=== PATIENT | female | born 1950 | race Caucasian/White ===

== ENCOUNTER → 2018-01-03 10:24 | Outpatient (CLI) | payer MEDICARE, OTHER, SELFPAY ==
--- NOTE | 2018-01-03 10:30 | DI.MG.S_ITS ---
UNILATERAL LEFT DIGITAL DIAGNOSTIC MAMMOGRAM 3D/2D WITH ADDITIONAL VIEWS: 01/03/2018 CLINICAL: Additional evaluation requested from prior study. Comparison is made to exams dated: 12/14/2017 mammogram, 10/17/2012 mammogram, and 06/16/2007 mammogram - [facility]. The tissue of the left breast is heterogeneously dense. This may lower the sensitivity of mammography. The focal asymmetry in the left breast at 1 o'clock anterior depth is not seen in additional views. No other significant masses or calcifications are seen in the breast. IMPRESSION: BENIGN There is no mammographic evidence of malignancy. A 1 year screening mammogram is recommended. This exam was interpreted at Station ID: [id number]. NOTE: For mammograms, a report in lay terms will be sent to the patient. Approximately 15% of breast malignancies will not be visualized mammographically. In the management of a palpable breast mass, a negative mammogram must not discourage biopsy of a clinically suspicious lesion. Electronically Signed By: Jacklyn Rodriguez M.D. lk/:01/03/2018 10:56:10 letter sent: Normal Exam ACR BI-RADS Category 2: Benign Finding(s) 3342F
== END ==
PROVIDERS: Family Provider Family Medicine; PCP Family Medicine; Visit Provider Family Medicine
DX: R92.8 Other abnormal and inconclusive findings on diagnostic imaging of breast (principal)
CPT/HCPCS: 77065; G0279

== ENCOUNTER → 2019-01-28 07:42 | Outpatient (CLI) | payer MEDICARE, OTHER, SELFPAY ==
[2019-01-28 09:39] LABS: Add Manual Diff / Slide Review NO; Basophils Absolute Auto 0 /uL (0-100); Basophils Percent Auto 0.4 % (0-2); Eosinophils Absolute Auto 100 /uL (0-450); Eosinophils Percent Auto 1.8 % (2-4); Hematocrit 42.1 % (36-46); Hemoglobin 14.6 g/dL (12.0-16.0); Lymphocytes Absolute Auto 1700 /uL (1100-4500); Lymphocytes Percent Auto 36.6 % (25-40); Mean Corpuscular HGB Conc 34.7 % (30-36); Mean Corpuscular Hemoglobin 34.4 PG (26-34); Mean Corpuscular Volume 99.3 fL (80-100); Monocytes Absolute Auto 500 /uL (0-900); Monocytes Percent Auto 11.5 % (3-14); Neutrophils Absolute Auto 2400 /uL (1500-7000); Neutrophils Percent Auto 49.7 % (50-75); Platelet Count 196 X10^3/uL (150-400); Red Blood Cell Count 4.24 X10^6/uL (4.0-5.2); Red Cell Distribution Width 14.1 % (11.6-14.8); White Blood Cell Count 4.8 X10^3/uL (4.5-11.0)
[2019-01-28 10:19] LABS: Alanine Aminotransferase 21 IU/L (9-52); Albumin 4.6 g/dL (3.5-5.0); Albumin Globulin Ratio 1.6 (1.0-2.8); Alkaline Phosphatase 103 U/L (38-126); Aspartate Aminotransferase 40 IU/L (14-36); BUN Creatinine Ratio 34.3 (6-22); Bilirubin Total 1.8 mg/dL (0.2-1.3); Blood Urea Nitrogen 24 mg/dL (7-17); Calcium 9.9 mg/dL (8.4-10.2); Carbon Dioxide 26 mmol/L (22-32); Chloride 96 mmol/L (98-107); Cholesterol 279 mg/dL (140-199); Estimated Glomerular Filt Rate > 60.0 mL/min (>60); Globulin 2.8 g/dL (1.7-4.1); Glucose 108 mg/dL (80-110); HDL Cholesterol 107 mg/dL (40-60); HEMOLYSIS < 15 (0-50); LDL Cholesterol Calculated 142 mg/dL (<100); Potassium 3.3 mmol/L (3.4-5.1); Sodium 135 mmol/L (137-145); Total Protein 7.4 g/dL (6.3-8.2); Triglycerides 152 mg/dL (35-150)
== END ==
PROVIDERS: PCP Family Medicine; Visit Provider Family Medicine
DX: E78.5 Hyperlipidemia, unspecified (principal); Z13.1 Encounter for screening for diabetes mellitus; Z13.6 Encounter for screening for cardiovascular disorders
CPT/HCPCS: 36415; 80053; 80061; 85025

== ENCOUNTER → 2019-01-29 12:26 | Outpatient (CLI) | payer MEDICARE, OTHER, SELFPAY ==
--- NOTE | 2019-01-29 | DI.MG.S_ITS ---
BILATERAL DIGITAL SCREENING MAMMOGRAM 3D/2D WITH CAD: 01/29/2019 CLINICAL: Routine screening. Comparison is made to exams dated: 12/14/2017 mammogram, 10/17/2012 mammogram, and 06/16/2007 mammogram - [facility]. The tissue of both breasts is heterogeneously dense. This may lower the sensitivity of mammography. Current study was also evaluated with a Computer Aided Detection (CAD) system. There are benign post operative findings in the left breast. No significant masses, calcifications, or other findings are seen in either breast. There has been no significant interval change. IMPRESSION: There is no mammographic evidence of malignancy. A 1 year screening mammogram is recommended. This exam was interpreted at Station ID: [id number]. NOTE: For mammograms, a report in lay terms will be sent to the patient. Approximately 15% of breast malignancies will not be visualized mammographically. In the management of a palpable breast mass, a negative mammogram must not discourage biopsy of a clinically suspicious lesion. Electronically Signed By: Tato zamora/rex:01/30/2019 06:31:32 letter sent: Normal Exam ACR BI-RADS Category 2: Benign Finding(s) 3342F
== END ==
PROVIDERS: PCP Family Medicine; Visit Provider Family Medicine
DX: Z12.31 Encounter for screening mammogram for malignant neoplasm of breast (principal)
CPT/HCPCS: 77063; 77067

== ENCOUNTER 2019-04-06 09:23 | Day surgery (SDC) | payer MEDICARE, OTHER, SELFPAY ==
[2019-04-06] VITALS (7 sets, daily range): BP systolic 115–153; BP diastolic 66–96; PULSE 71–93; RESP 12–19; TEMP 36.1–36.6; O2SAT 93–100; BMI 24.7
--- NOTE | 2019-04-06 | PATH_ITS ---
[facility] Accession Number: [id number] . 01 Material submitted: . PART A: esophagus, E-G Junction - GE JUNCTION PART B: gastrointestinal site - GASTRIC ANTRUM . 01 Clinical history: . B. RULE OUT H. PYLORI . 02 Diagnosis: A. GE Junction: Squamous epithelium and squamous mucosa with no diagnostic abnormality. Intraepithelial eosinophils are not increased. Negative for dysplasia and malignancy. No columnar mucosa is identified for evaluation. . B. Gastric Antrum: Portions of gastric antral and body-type mucosa with no significant histomorphologic abnormality. Negative for H. pylori organisms by H/E stain. Negative for intestinal metaplasia. Negative for dysplasia or malignancy. [facility]/04/07/2019 . 02 Electronically signed: . Suyapa Ochoa MD, Pathologist NPI- [id number] . 01 Gross description: . Part A: GE JUNCTION: Received in formalin are 3 fragment(s) of christias[place], soft tissue measuring 0.1 x 0.1 x 0.1 cm to 0.2 x 0.2 x 0.1 cm which is entirely submitted and submitted entirely in 1 cassette(s) Part B: GASTRIC ANTRUM: Received in formalin are 3 fragment(s) of christianson, soft tissue measuring 0.1 x 0.1 x 0.1 cm to 0.2 x 0.2 x 0.2 cm which is entirely submitted and submitted entirely in 1 cassette(s) /DMC /DMC . 02 Pathologist provided ICD-10: K29.70 . 02 CPT . 068361, [id number] Performed at: [facility] [address] [place] [address] [address], [place], [place] [id number] MD Brennon Alamo MD Phone: [phone] Performed at: 02 [facility] [address] [place] [id number] MD Mari Shanks MD Phone: [phone]
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
--- NOTE | 2019-04-06 10:48 | PM.PREOP ---
Pre-operative Note Interval Note History & Physical reviewed/Exam performed by Physician: Yes Changes to H&P: No
--- NOTE | 2019-04-06 11:59 | PM.OP.ENDO ---
Operative Date/Time/Diagnoses Date of procedure: 04/06/19 Time of procedure: 11:51 Pre-op diagnosis: Dysphagia. History of Mahan's esophagus. History of stricture. Post-op diagnosis: same (Recurrence stricture at the GE junction. Duodenitis.) Procedure & Clinicians Study performed: EGD with balloon dilatation, cold biopsy of stomach and GE junction. Same procedure as scheduled: Yes Indications: See preop diagnosis Surgeon: Aroldo Carrillo Procedure Notes SCOAP/Timeout: Performed Procedure in detail: Patient is placed in the right lateral decubitus position and underwent deep sedation with monitored anesthesia care due to her prior reactions to narcotics and Versed. Local anesthetic was sprayed in the back of her throat. Bite block was inserted and the scope was passed through it into the esophagus. The esophagus was somewhat tortuous. At 39 cm there was a stricture that was narrow enough that I could not get the scope to pass through it. Biopsies were taken at this level to monitor Mahan's. I then passed a balloon through the scope and blew it up dilating from 10-12 mm diameter. This allowed me to easily enter the stomach. The stomach was unremarkable. The pyloric channel was mildly narrowed. The duodenum was remarkable for significant inflammation in the bulb. The 2nd 3rd and 4th parts of the duodenum were normal. The scope was brought back into the stomach and retroflexed. There was bleeding visible the GE junction but otherwise the proximal stomach was normal. Biopsies were taken of the antrum to rule out H pylori. The scope was then brought up into the esophagus and I attempted to clear the area to see if I could further dilate her. This proved to be very difficult as there was a small amount of bleeding which gradually decreased. The tissue at the it dilatation site was somewhat frayed and so I could not tell if it was safe to actually blow the balloon up further not so I chose not to. The scope was removed and the patient tolerated the procedure well. Scope withdrawal time: Not applicable Sedation minutes: 0 Findings: Mahan's esophagus (History of), stricture (At 39 cm from the incisors at the GE junction) and other findings (Duodenitis) Specimen(s): other (GE junction biopsies at the stricture and gastric antrum biopsies) Complications: none Recommendations: Continue medication(s) (Take your omeprazole before breakfast and in the evening before dinner.) Follow up: weeks (Two) Disposition: PACU
--- NOTE | 2019-04-06 12:00 | SUR.PHASEI ---
to PACU awake, resp unlabored, report to Pj Guerra
--- NOTE | 2019-04-06 12:59 | SUR.PHASEII ---
Appt with Dr. Carrillo made for 04/29/19 at 10:45. Pt will be away from 04/16-04/25.
== END 2019-04-06 12:57 | disposition home or self-care (01) ==
PROVIDERS: PCP Family Medicine; Visit Provider Specialist
PROC: 0DJ08ZZ Inspection of Upper Intestinal Tract, Via Natural or Artificial Opening Endoscopic (ICD-10-PCS; CPT 43235; principal; 2019-04-06 10:30)
DX: K22.719 Barrett's esophagus with dysplasia, unspecified (principal); K22.2 Esophageal obstruction; K29.80 Duodenitis without bleeding
CPT/HCPCS: 43245; 43239; 88305; J2704

== ENCOUNTER → 2020-02-04 09:39 | Outpatient (CLI) | payer MEDICARE, OTHER, SELFPAY ==
[2020-02-04 10:37] LABS: Add Manual Diff / Slide Review NO; Basophils Absolute Auto 0 /uL (0-100); Basophils Percent Auto 0.4 % (0-2); Eosinophils Absolute Auto 0 /uL (0-450); Eosinophils Percent Auto 0.8 % (2-4); Hematocrit 37.6 % (36-46); Hemoglobin 12.9 g/dL (12.0-16.0); Lymphocytes Absolute Auto 1100 /uL (1100-4500); Lymphocytes Percent Auto 22.3 % (25-40); Mean Corpuscular HGB Conc 34.3 % (30-36); Mean Corpuscular Hemoglobin 34.3 PG (26-34); Mean Corpuscular Volume 100.1 fL (80-100); Monocytes Absolute Auto 400 /uL (0-900); Monocytes Percent Auto 8.8 % (3-14); Neutrophils Absolute Auto 3300 /uL (1500-7000); Neutrophils Percent Auto 67.7 % (50-75); Platelet Count 214 X10^3/uL (150-400); Red Blood Cell Count 3.75 X10^6/uL (4.0-5.2); Red Cell Distribution Width 13.9 % (11.6-14.8); White Blood Cell Count 4.8 X10^3/uL (4.5-11.0)
[2020-02-04 10:57] LABS: Alanine Aminotransferase 14 IU/L (<35); Albumin 4.3 g/dL (3.5-5.0); Albumin Globulin Ratio 1.5 (1.0-2.8); Alkaline Phosphatase 95 U/L (38-126); Aspartate Aminotransferase 22 IU/L (14-36); BUN Creatinine Ratio 29.6 (6-22); Bilirubin Total 0.5 mg/dL (0.2-1.3); Blood Urea Nitrogen 16 mg/dL (7-17); Calcium 9.5 mg/dL (8.4-10.2); Carbon Dioxide 27 mmol/L (22-32); Chloride 104 mmol/L (98-107); Cholesterol 222 mg/dL (140-199); Estimated Glomerular Filt Rate > 60.0 mL/min (>60); Globulin 2.8 g/dL (1.7-4.1); Glucose 115 mg/dL (80-110); HDL Cholesterol 87 mg/dL (40-60); HEMOLYSIS < 15 (0-50); LDL Cholesterol Calculated 120 mg/dL (<100); Potassium 4.2 mmol/L (3.4-5.1); Sodium 138 mmol/L (137-145); Total Protein 7.1 g/dL (6.3-8.2); Triglycerides 75 mg/dL (35-150)
[2020-02-04 11:23] LABS: Thyroid Stimulating Hormone 0.85 uIU/mL (0.47-4.68)
== END ==
PROVIDERS: PCP Family Medicine; Referring Provider Family Medicine; Visit Provider Family Medicine
DX: E78.5 Hyperlipidemia, unspecified (principal)
CPT/HCPCS: 36415; 80053; 80061; 84443; 85025

== ENCOUNTER 2020-02-11 08:03 | Outpatient (RCR) | payer MEDICARE, OTHER, SELFPAY ==
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
--- NOTE | 2020-02-11 18:00 | PT.OPPOC ---
Physical, Occupational & Speech Therapy At [facility] Current Diagnoses Hyperlipidemia, unspecified (02/11/20) Muscle weakness (generalized) (02/11/20) Pain in right finger(s) (02/11/20) Pain in left finger(s) (02/11/20) Other symptoms and signs involving the musculoskeletal system (02/11/20) Other reduced mobility (02/11/20) Visit Care Team Role Provider Type Carlos Manuel Elizabeth MD Attending Provider Physician Family Provider Primary Care Provider Referring Provider Specialty: Family Practice Address: [address] [place] [address], [facility] Email: [email or web address] Plan Of Care PT-OP-T Assessment and Plan Start: 02/11/20 08:14 Freq: Status: Active Protocol: Document 02/11/20 08:15 LRN (Rec: 02/11/20 19:58 LRN [id number]) Physical Therapy Assessment Rehab Potential Rehabilitation Potential Good Evaluation Complexity Number of Personal Factors/Comorbidities 1-2 Number of Body Systems Impaired 3 Clinical Presentation at Evaluation Evolving Impairments Impairments Pain,ROM,Strength Goals Four Impairment Decreased strength Short Term Goal (STG) Improve L thumb strength to 5/ 5 and improve R rn urgent care strength 1-2#. STG Duration 03/25/20 Kier Boiler Goal (LTG) Improve hip strength so that the pt will be able to lessen her pain with gait after the first 10 or less steps. LTG Duration 05/11/20 Three Impairment Decreased mobility Short Term Goal (STG) Improve thumb MCP jt active flex to 52 deg's bilaterally ( Initial: L 52 deg's, R 46 deg' s), Improve thumb ext to 50 deg's and AB to no less than 60 deg' s (Initial in deg's: ext is L 42, R 40; AB is L 44, R 50). STG Duration 03/25/20 Halfway Goal (LTG) Improve hip mobility so that pt will be able to tolerate sitting for > 1hr. LTG Duration 05/11/20 Two Impairment Isac thumb and hip pain Short Term Goal (STG) Eliminate onset of sharp pain in thumbs (Initial Eval: Isac ache pain at thumb MCP joints rated 2-4/10 with intermittent sharp pn). STG Duration 03/25/20 Halfway Goal (LTG) Decrease isac hip pain to no greater than 2/10 with pt able to ambulate with minimal to no pain after the first 10 or less steps. LTG Duration 05/11/20 One Impairment Lacks appropriate self care HEP. Short Term Goal (STG) Pt will be independent in a self care HEP for the thumbs. STG Duration 02/26/20 Kier Boiler Goal (LTG) Pt will be independent in a self care HEP of the hips. LTG Duration 05/11/20 Assessment Summary Assessment Pt presents with pain at the MCP joints of the thumbs, probably mechanical (arthritic ) in nature, and possible tenosynivitis of the L thumb at the CMC joint. She has weakness of the L thumb with extension and adduction due to pain, and limited mobility at both thumbs at the MCP and CMC joints. The rn urgent care strength of her non-dominant hand is almost equal to her dominant hand, which would be unexpected. The pt has pain in her bilateral hips that is limiting her function with the first 50-75 steps of walking and with squatting, and causing a little difficulty with sitting for 1 hr, getting in/out of a bath and usual housework activities. Further assessment is needed for strength and mobility limitiations that will be addressed at the next visit. The pt will benefit from skilled physical therapy for education in self care exercises and improvement in thumb, wrist and hip mobility and strength to improve the ease of functional activities. We will first concentrate on the pt's hand pain to reduce and place her on a self care program, then address her bilateral hip dysfunction. Physical Therapy Plan Frequency and Duration Frequency of Treatment 2x/Week Plan of Care Start Date 02/11/20 Plan of Care End Date 05/11/20 Therapeutic Interventions Therapeutic Interventions Aquatic Therapy,Gait Training, Home Exercise Program,Joint Mobilizations,Manual Therapy, Self-Care/Home Management,Soft Tissue Mobilization,Taping, Therapeutic Exercises Modalities Cold Pack/Ice Massage,Hot Packs,Paraffin Bath,Ultrasound Other Referrals/Consults Referrals/Consults Recommended Recommend pt be referred for a nutrition consult for education on an anti- inflammatory diet. Next Visit Focus/Plan Next Note Type Treatment Note Next Visit Plan Assess Isac Hip strength & SLS with self care ex's as needed (check mobility after paraffin dip) Paraffin Dip, f/b JMT & AROM w /HEP. Assess Isac Hip ROM. Add goals if needed for hips and update POC. Plan of Care Dates Plan of Care Start Date 02/11/20 Plan of Care End Date 05/11/20 Electronically Signed by: Jacklyn Hooper, PT 02/17/20 1769 Please Sign and Return: I have reviewed this Plan of Care and certify that the skilled therapy services above are required to meet the patient?s needs. Physician Signature Date Printed Name and Credentials Clinical Instructor Signature Printed Name and Credentials
--- NOTE | 2020-02-17 13:05 | PT-OP ANOTE ---
Late Entry: Message received from Dr. Elizabeth's office that pt does not want to continue therapy; therefore DC requested.
--- NOTE | 2020-02-17 13:09 | PT.OPDS ---
Current Diagnoses Hyperlipidemia, unspecified (02/11/20) Muscle weakness (generalized) (02/11/20) Pain in right finger(s) (02/11/20) Pain in left finger(s) (02/11/20) Other symptoms and signs involving the musculoskeletal system (02/11/20) Other reduced mobility (02/11/20) Visit Care Team Role Provider Type Carlos Manuel Elizabeth MD Attending Provider Physician Family Provider Primary Care Provider Referring Provider Specialty: Family Practice Address: [address] [place] [address], [facility] Email: [email or web address] Visit Number Visit Number 1 Discharge Summary PT-OP-B Current Condition Start: 02/11/20 08:14 Freq: Status: Active Protocol: Document 02/11/20 08:15 LRN (Rec: 02/11/20 09:03 LRN [id number]) Current Condition History of Current Condition Onset Date 3 yrs ago Current Complaints Ache in thumbs PIP jt bilaterally, isac hip pain first 50-75 steps standing. History of Current Condition Insidious onset of hand pain that aches but sometimes is sharp in nature. Hip pains are more acute sometimes than other. Hip pain is constant, increases with sitting. Shopping makes it worse. Sore hip joints, tender and achy, like a bruise. Denies taking arthritis medications. Prior Treatments and Tests None Future Testing and Treatments Planned None Treatment Goals Patient/Caregiver Goals Pt goals is to reduce joint pain and increase strength in the thumbs and hips. Prior Functional Status Baseline Function- ADL's Independent Baseline Function- Mobility Independent Baseline Function- Gait Bilateral hip pain with the first 50-75 steps of gait. 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 Current Functional Impairments (Reported) Functional Limitations- ADL's Post activity pain with: opening jars, dressing, cooking using utensils, blow drying hair; activity causes sharp pain in the thumb. Functional Limitations- Mobility/Gait Lateral hip pain causes limping both sides for the first 50-75 steps. Functional Limitations- Recreation/ Hip pain hinders ability to Hobbies garden/squat Personal Factors Other Personal Factors That May Effect Lives with spouse and daughter Therapy/Recovery at home. Dx of arthritis PT-OP-C Subjective Start: 02/11/20 08:14 Freq: Status: Active Protocol: Document 02/11/20 08:15 LRN (Rec: 02/11/20 09:03 LRN [id number]) Patient Questionnaires Lower Extremity Functional Scale LEFS Score 68 LEFS Impairment 1 to 19% Impaired (Score 63-79 ) Upper Extremity Functional Scale UEFS Score .......... OP-PT Pain Assessment Location Hips Pain Location Details Lateral hips sometimes bruise feeling Intensity 4 Scale Used Numeric (0 - 10) Description Aching Frequency Constant Pain Aggravating Factors Sitting,Walking PIP jt of thumb' Pain Location Details Bilateral hands Intensity 4 Scale Used Numeric (0 - 10) Description Aching,Sharp,With Movement Frequency Constant Pain Duration Constant ache, sometimes sharp with movement Pain Aggravating Factors Activity Other Pain Alleviating Factors No pain sleeping. PT-OP-H Neuro Start: 02/11/20 08:14 Freq: Status: Active Protocol: Document 02/11/20 08:15 LRN (Rec: 02/11/20 19:58 LRN [id number]) Deep Tendon Reflex & Clonus Assessment Deep Tendon Reflex Tricep Deep Tendon Reflex 0 Absent Bilateral Brachioradialis Deep Tendon Reflex 2+ Normal Bilateral Bicep Deep Tendon Reflex 2+ Normal PT-OP-K Range of Motion Start: 02/11/20 08:14 Freq: Status: Active Protocol: Document 02/11/20 08:15 LRN (Rec: 02/11/20 19:58 LRN [id number]) Wrist Goniometric Range of Motion ROM Limitations Wrist Limitations of Range of Motion Soft Tissue Tightness Comments Bilateral wrist AROM is WNL except: Supination: Right - lacks 10 deg's; Left - lacks 3 deg's ( normal is 90 deg's) Flexion: 65 deg's bilateraly (normal is 80 deg's) Extension: 53 deg's bilaterally (normal is 70 deg' s). Thumb Goniometric Range of Motion Thumb Left MCP Flexion Active (degrees) 52 CMC Flexion Active (degrees) 10 CMC Extension Active (degrees) 42 Right MCP Flexion Active (degrees) 46 CMC Flexion Active (degrees) 10 CMC Extension Active (degrees) 40 Thumb ROM Limitations Comments MCP flex norm is 50 deg's CMC Ext is 50 deg's CMC AB is 70 deg's. CMC AROM: Right: 50 deg's, Left: 44 deg's. PT-OP-L Special Tests Start: 02/11/20 08:14 Freq: Status: Active Protocol: Document 02/11/20 08:15 LRN (Rec: 02/11/20 19:58 LRN [id number]) Special Tests Wrist/Hand Special Tests Myron's Test Results + Left side with pain at CMC jt Comments Pain L side at CMC jt, Ache on R side at CMC jt. Pain indicates possible stenosing tenosynovitis. PT-OP-M Strength Start: 02/11/20 08:14 Freq: Status: Active Protocol: Document 02/11/20 08:15 LRN (Rec: 02/11/20 19:58 LRN [id number]) Wrist Strength Wrist Manual Muscle Testing Right Reason Not Measured WFL Left Reason Not Measured WFL Finger/Thumb Strength Finger Manual Muscle Testing Right Thumb Comments Strength is generally 5/5. Left Thumb Extension (thumb C8) 3 Fair Adduction 4 Good Comments Strength is 5/5 except as indicated above. Hand Text Transcriber/Pinch Strength Hand Dominance Hand Dominance Right Hand Strength Right Comments 3 trials: 22#, 21#, 15# Left Comments 3 trials: 21#, 20#, 20# PT-OP-T Assessment and Plan Start: 02/11/20 08:14 Freq: Status: Active Protocol: Document 02/17/20 13:06 LRN (Rec: 02/17/20 13:09 LRN [id number]) Physical Therapy Assessment Goals Four Impairment Decreased strength Short Term Goal (STG) Improve L thumb strength to 5/ 5 and improve R inspector machine cut glass strength 1-2#. STG Duration 03/25/20 Not assessed due msg rec'd of pt request for DC Alf Goal (LTG) Improve hip strength so that the pt will be able to lessen her pain with gait after the first 10 or less steps. LTG Duration 05/11/20 Not assessed due msg rec'd of pt request for DC Three Impairment Decreased mobility Short Term Goal (STG) Improve thumb MCP jt active flex to 52 deg's bilaterally ( Initial: L 52 deg's, R 46 deg' s), Improve thumb ext to 50 deg's and AB to no less than 60 deg' s (Initial in deg's: ext is L 42, R 40; AB is L 44, R 50). STG Duration 03/25/20 Leak Patcher Goal (LTG) Improve hip mobility so that pt will be able to tolerate sitting for > 1hr. LTG Duration 05/11/20 Not assessed due msg rec'd of pt request for DC Two Impairment Isac thumb and hip pain Short Term Goal (STG) Eliminate onset of sharp pain in thumbs (Initial Eval: Isac ache pain at thumb MCP joints rated 2-4/10 with intermittent sharp pn). STG Duration 03/25/20 Not assessed due msg rec'd of pt request for DC Leak Patcher Goal (LTG) Decrease isac hip pain to no greater than 2/10 with pt able to ambulate with minimal to no pain after the first 10 or less steps. LTG Duration 05/11/20 Not assessed due msg rec'd of pt request for DC One Impairment Lacks appropriate self care HEP. Short Term Goal (STG) Pt will be independent in a self care HEP for the thumbs. STG Duration 02/26/20 Not assessed due msg rec'd of pt request for DC Alf Goal (LTG) Pt will be independent in a self care HEP of the hips. LTG Duration 05/11/20 Not assessed due msg rec'd of pt request for DC Assessment Summary Assessment Pt seen for initial evaluation 02/11/20, requested DC from PT per Dr. Elizabeth 02/15/20. No further therapy planned. Physical Therapy Plan Discharge Physical Therapy Discharge Reasons Patient Request Discharge Comments Thank you for your referral.
--- NOTE | 2020-03-29 09:31 | PT.OPDS ---
Current Diagnoses Hyperlipidemia, unspecified (02/11/20) Muscle weakness (generalized) (02/11/20) Pain in right finger(s) (02/11/20) Pain in left finger(s) (02/11/20) Other symptoms and signs involving the musculoskeletal system (02/11/20) Other reduced mobility (02/11/20) Visit Care Team Role Provider Type Carlos Manuel Elizabeth MD Attending Provider Physician Family Provider Primary Care Provider Referring Provider Specialty: Family Practice Address: [address] [place] [address], [facility] Email: [email or web address] Visit Number Visit Number 1 Discharge Summary PT-OP-B Current Condition Start: 02/11/20 08:14 Freq: Status: Active Protocol: Document 02/11/20 08:15 LRN (Rec: 02/11/20 09:03 LRN [id number]) Current Condition History of Current Condition Onset Date 3 yrs ago Current Complaints Ache in thumbs PIP jt bilaterally, isac hip pain first 50-75 steps standing. History of Current Condition Insidious onset of hand pain that aches but sometimes is sharp in nature. Hip pains are more acute sometimes than other. Hip pain is constant, increases with sitting. Shopping makes it worse. Sore hip joints, tender and achy, like a bruise. Denies taking arthritis medications. Prior Treatments and Tests None Future Testing and Treatments Planned None Treatment Goals Patient/Caregiver Goals Pt goals is to reduce joint pain and increase strength in the thumbs and hips. Prior Functional Status Baseline Function- ADL's Independent Baseline Function- Mobility Independent Baseline Function- Gait Bilateral hip pain with the first 50-75 steps of gait. 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 Current Functional Impairments (Reported) Functional Limitations- ADL's Post activity pain with: opening jars, dressing, cooking using utensils, blow drying hair; activity causes sharp pain in the thumb. Functional Limitations- Mobility/Gait Lateral hip pain causes limping both sides for the first 50-75 steps. Functional Limitations- Recreation/ Hip pain hinders ability to Hobbies garden/squat Personal Factors Other Personal Factors That May Effect Lives with spouse and daughter Therapy/Recovery at home. Dx of arthritis PT-OP-C Subjective Start: 02/11/20 08:14 Freq: Status: Active Protocol: Document 02/11/20 08:15 LRN (Rec: 02/11/20 09:03 LRN [id number]) Patient Questionnaires Lower Extremity Functional Scale LEFS Score 68 LEFS Impairment 1 to 19% Impaired (Score 63-79 ) Upper Extremity Functional Scale UEFS Score .......... OP-PT Pain Assessment Location Hips Pain Location Details Lateral hips sometimes bruise feeling Intensity 4 Scale Used Numeric (0 - 10) Description Aching Frequency Constant Pain Aggravating Factors Sitting,Walking PIP jt of thumb' Pain Location Details Bilateral hands Intensity 4 Scale Used Numeric (0 - 10) Description Aching,Sharp,With Movement Frequency Constant Pain Duration Constant ache, sometimes sharp with movement Pain Aggravating Factors Activity Other Pain Alleviating Factors No pain sleeping. PT-OP-H Neuro Start: 02/11/20 08:14 Freq: Status: Active Protocol: Document 02/11/20 08:15 LRN (Rec: 02/11/20 19:58 LRN [id number]) Deep Tendon Reflex & Clonus Assessment Deep Tendon Reflex Tricep Deep Tendon Reflex 0 Absent Bilateral Brachioradialis Deep Tendon Reflex 2+ Normal Bilateral Bicep Deep Tendon Reflex 2+ Normal PT-OP-K Range of Motion Start: 02/11/20 08:14 Freq: Status: Active Protocol: Document 02/11/20 08:15 LRN (Rec: 02/11/20 19:58 LRN [id number]) Wrist Goniometric Range of Motion ROM Limitations Wrist Limitations of Range of Motion Soft Tissue Tightness Comments Bilateral wrist AROM is WNL except: Supination: Right - lacks 10 deg's; Left - lacks 3 deg's ( normal is 90 deg's) Flexion: 65 deg's bilateraly (normal is 80 deg's) Extension: 53 deg's bilaterally (normal is 70 deg' s). Thumb Goniometric Range of Motion Thumb Left MCP Flexion Active (degrees) 52 CMC Flexion Active (degrees) 10 CMC Extension Active (degrees) 42 Right MCP Flexion Active (degrees) 46 CMC Flexion Active (degrees) 10 CMC Extension Active (degrees) 40 Thumb ROM Limitations Comments MCP flex norm is 50 deg's CMC Ext is 50 deg's CMC AB is 70 deg's. CMC AROM: Right: 50 deg's, Left: 44 deg's. PT-OP-L Special Tests Start: 02/11/20 08:14 Freq: Status: Active Protocol: Document 02/11/20 08:15 LRN (Rec: 02/11/20 19:58 LRN [id number]) Special Tests Wrist/Hand Special Tests Myron's Test Results + Left side with pain at CMC jt Comments Pain L side at CMC jt, Ache on R side at CMC jt. Pain indicates possible stenosing tenosynovitis. PT-OP-M Strength Start: 02/11/20 08:14 Freq: Status: Active Protocol: Document 02/11/20 08:15 LRN (Rec: 02/11/20 19:58 LRN [id number]) Wrist Strength Wrist Manual Muscle Testing Right Reason Not Measured WFL Left Reason Not Measured WFL Finger/Thumb Strength Finger Manual Muscle Testing Right Thumb Comments Strength is generally 5/5. Left Thumb Extension (thumb C8) 3 Fair Adduction 4 Good Comments Strength is 5/5 except as indicated above. Hand Urology Physician Assistant/Pinch Strength Hand Dominance Hand Dominance Right Hand Strength Right Comments 3 trials: 22#, 21#, 15# Left Comments 3 trials: 21#, 20#, 20# PT-OP-T Assessment and Plan Start: 02/11/20 08:14 Freq: Status: Active Protocol: Document 03/29/20 09:30 MB (Rec: 03/29/20 09:30 MB [id number]) Physical Therapy Plan Discharge Physical Therapy Discharge Reasons No Longer Attending PT Discharge Comments Pt cancelled remaining appointments and requested d/c .
== END 2020-03-29 12:55 ==
LOC: PHYS 08:03
PROVIDERS: Family Provider Family Medicine; PCP Family Medicine; Referring Provider Family Medicine; Visit Provider Family Medicine
DX: R29.898 Other symptoms and signs involving the musculoskeletal system (principal); M79.644 Pain in right finger(s); M79.645 Pain in left finger(s); E78.5 Hyperlipidemia, unspecified; M62.81 Muscle weakness (generalized); Z74.09 Other reduced mobility
CPT/HCPCS: 97162

== ENCOUNTER → 2021-02-18 08:22 | Outpatient (CLI) | payer MEDICARE, OTHER, SELFPAY ==
--- NOTE | 2021-02-18 08:23 | DI.MG.S_ITS ---
BILATERAL DIGITAL SCREENING MAMMOGRAM 3D/2D WITH CAD: 02/18/2021 CLINICAL: Routine screening. Comparison is made to exams dated: 01/29/2019 mammogram, 12/14/2017 mammogram, 10/17/2012 mammogram, and 06/16/2007 mammogram - [facility]. The tissue of both breasts is heterogeneously dense. This may lower the sensitivity of mammography. Current study was also evaluated with a Computer Aided Detection (CAD) system. There are benign post operative findings in the left breast. No significant masses, calcifications, or other findings are seen in either breast. There has been no significant interval change. IMPRESSION: BENIGN There is no mammographic evidence of malignancy. A 1 year screening mammogram is recommended. This exam was interpreted at Station ID: [id number]. NOTE: For mammograms, a report in lay terms will be sent to the patient. Approximately 15% of breast malignancies will not be visualized mammographically. In the management of a palpable breast mass, a negative mammogram must not discourage biopsy of a clinically suspicious lesion. Electronically Signed By: Tato zamora/rex:02/21/2021 07:37:55 letter sent: Normal Exam ACR BI-RADS Category 2: Benign Finding(s) [id number]
== END ==
PROVIDERS: Family Provider Family Medicine; PCP Family Medicine; Referring Provider Family Medicine; Visit Provider Family Medicine
DX: Z12.31 Encounter for screening mammogram for malignant neoplasm of breast (principal)
CPT/HCPCS: 77063; 77067

== ENCOUNTER → 2021-05-12 09:12 | Outpatient (CLI) | payer MEDICARE, OTHER, SELFPAY ==
[2021-05-12 11:28] LABS: COVID19 -Nasal RAPID Negative (Negative)
== END ==
PROVIDERS: Family Provider Family Medicine; PCP Family Medicine; Visit Provider Surgery
DX: Z01.812 Encounter for preprocedural laboratory examination (principal); Z20.822 Contact with and (suspected) exposure to COVID-19
CPT/HCPCS: 87635; C9803

== ENCOUNTER 2021-05-15 07:30 | Day surgery (SDC) | payer MEDICARE, OTHER, SELFPAY ==
[2021-05-15 08:00] VITALS: BP 160/100; PULSE 93; RESP 98; TEMP 37.4
[2021-05-15] MEDS: LACTATED RINGERS 1,000 ML 200 ML IV (08:10)
[2021-05-15 08:11] VITALS: BMI 23.8
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
--- NOTE | 2021-05-15 09:47 | P.OP.ENDO_ITS ---
Operative Date/Time/Diagnoses Date of procedure: 05/15/21 Time of procedure: 09:47 Pre-op diagnosis: esophageal stricture Post-op diagnosis: same Procedure & Clinicians Study performed: Esophagoduodenoscopy with esophageal dilation Same procedure as scheduled: Yes Indications: esophageal dysphagia Surgeon: Barney Auguste Procedure Notes Procedure in detail: Patient placed in left lateral decubitus position. Time out was performed. Procedural sedation was administered with propofol by Anesthesia. A bite block was placed. the scope was inserted into the mouth and advanced through the esophagus. There was an esophageal stricture at the GE ju nction which shows at approximately 38 cm from the incisors which did not accommodate the EGD scope. A balloon was passed through the scope across the stricture and was carefully inflated to 1st 18 mm of water pressure and subsequently 20 mm. At this point the balloon was withdrawn. The scope now easily passed through the esophagus into the stomach. There was no evidence of Mahan's esophagus. The stomach was normal in its appearance. And into the stomach. The pylorus was intubated and the duodenum was normal to the 2nd portion. The scope was retroflexed within the stomach and there was a small hiatal hernia.Stomach was desufflated and scope removed. Patient tolerated procedure well. Specimen(s): none sent Complications: none Impression: Esophageal stricture Post-procedure Plan for aftercare: Dilation as necessary Disposition: same day surgery
[2021-05-15 09:51] VITALS: BP 118/67; PULSE 78; RESP 11; TEMP 36.4; O2SAT 90
[2021-05-15 09:57] VITALS: BP 106/76; PULSE 77; RESP 9; O2SAT 98
[2021-05-15 10:01] VITALS: BP 139/78; PULSE 80; RESP 14; O2SAT 94
[2021-05-15 10:07] VITALS: BP 144/81; PULSE 72; RESP 12; TEMP 36.1; O2SAT 99
[2021-05-15 10:36] VITALS: BP 141/83; PULSE 74; RESP 16; TEMP 36.3; O2SAT 98
--- NOTE | 2021-05-15 11:21 | SUR.PHASEII ---
Pt ready for discharge at 10:45pm, waiting for ride.
== END 2021-05-15 10:28 | disposition home or self-care (01) ==
PROVIDERS: Family Provider Family Medicine; PCP Family Medicine; Referring Provider Surgery; Visit Provider Surgery
PROC: 0DJ08ZZ Inspection of Upper Intestinal Tract, Via Natural or Artificial Opening Endoscopic (ICD-10-PCS; CPT 43235; principal; 2021-05-15 08:30)
DX: K22.2 Esophageal obstruction (principal); Z87.19 Personal history of other diseases of the digestive system
CPT/HCPCS: 43249; J2405; J2704

== ENCOUNTER → 2022-03-06 08:13 | Outpatient (CLI) | payer MEDICARE, OTHER, SELFPAY ==
--- NOTE | 2022-03-06 | DI.MG.S_ITS ---
BILATERAL DIGITAL SCREENING MAMMOGRAM 3D/2D WITH CAD: 03/06/2022 CLINICAL: Routine screening. Comparison is made to exams dated: 02/18/2021 mammogram, 01/29/2019 mammogram, 01/03/2018 mammogram, and 12/14/2017 mammogram - . The tissue of both breasts is heterogeneously dense. This may lower the sensitivity of mammography. Current study was also evaluated with a Computer Aided Detection (CAD) system. There is an irregular asymmetry in the right breast middle depth medial region seen on the craniocaudal view only. This is more prominent. No other significant masses, calcifications, or other findings are seen in either breast. IMPRESSION: INCOMPLETE: NEEDS ADDITIONAL IMAGING EVALUATION The irregular asymmetry in the right breast is indeterminate. Additional views with possible ultrasound are recommended. Based on the Tyrer Cuzick model (a risk assessment model) the patient's lifetime risk is 8.8% and her 10 year risk is 5.6%. According to the ACR, ACS, and NCCN guidelines, an annual breast MRI exam along with mammogram is recommended if the patient's lifetime risk is 20% or greater. This exam was interpreted at Station ID: [id number]. NOTE: For mammograms, a report in lay terms will be sent to the patient. Approximately 15% of breast malignancies will not be visualized mammographically. In the management of a palpable breast mass, a negative mammogram must not discourage biopsy of a clinically suspicious lesion. Electronically Signed By: Rudi Singer M.D. slc/:03/06/2022 09:01:30 letter sent: Additional Imaging Needed ACR BI-RADS Category 0: Incomplete 3340F
== END ==
PROVIDERS: Family Provider Family Medicine; PCP Family Medicine; Referring Provider Family Medicine; Visit Provider Family Medicine
DX: Z12.31 Encounter for screening mammogram for malignant neoplasm of breast (principal)
CPT/HCPCS: 77063; 77067

== ENCOUNTER → 2022-03-28 10:18 | Outpatient (CLI) | payer MEDICARE, OTHER, SELFPAY ==
--- NOTE | 2022-03-28 | DI.MG.S_ITS ---
UNILATERAL RIGHT DIGITAL DIAGNOSTIC MAMMOGRAM 3D/2D WITH ADDITIONAL VIEWS: 03/28/2022 CLINICAL: Additional evaluation requested from prior study. Comparison is made to exams dated: 03/06/2022 mammogram, 02/18/2021 mammogram, and 01/29/2019 mammogram - [facility]. The tissue of right breast is heterogeneously dense. This may lower the sensitivity of mammography. The asymmetry in the right breast middle depth medial region seen on the craniocaudal view only is no longer seen and is consistent with fibroglandular tissue. This is not seen in additional views. No other significant masses or calcifications are seen in the breast. IMPRESSION: BENIGN There is no mammographic evidence of malignancy. A 1 year screening mammogram is recommended. Based on the Tyrer Cuzick model (a risk assessment model) the patient's lifetime risk is 8.8% and her 10 year risk is 5.6%. According to the ACR, ACS, and NCCN guidelines, an annual breast MRI exam along with mammogram is recommended if the patient's lifetime risk is 20% or greater. This exam was interpreted at Station ID: [id number]. NOTE: For mammograms, a report in lay terms will be sent to the patient. Approximately 15% of breast malignancies will not be visualized mammographically. In the management of a palpable breast mass, a negative mammogram must not discourage biopsy of a clinically suspicious lesion. Electronically Signed By: Kodi Moran M.D., jr/rex:03/28/2022 14:55:09 letter sent: Normal Exam ACR BI-RADS Category 2: Benign Finding(s) 3342F
== END ==
PROVIDERS: Family Provider Family Medicine; PCP Family Medicine; Referring Provider Family Medicine; Visit Provider Family Medicine
DX: R92.8 Other abnormal and inconclusive findings on diagnostic imaging of breast (principal)
CPT/HCPCS: 77065; G0279

== ENCOUNTER → 2023-07-25 13:05 | Outpatient (CLI) | payer MEDICARE, OTHER, SELFPAY ==
[2023-07-25 13:38] LABS: Add Manual Diff / Slide Review NO; Basophils Absolute Auto 0 /uL (0-100); Basophils Percent Auto 0.4 % (0-2); Eosinophils Absolute Auto 0 /uL (0-450); Eosinophils Percent Auto 0.3 % (2-4); Hematocrit 40.7 % (36-46); Hemoglobin 14.1 g/dL (12.0-16.0); Lymphocytes Absolute Auto 1300 /uL (1100-4500); Lymphocytes Percent Auto 25.6 % (25-40); Mean Corpuscular HGB Conc 34.7 % (30-36); Mean Corpuscular Hemoglobin 34.8 PG (26-34); Mean Corpuscular Volume 100.3 fL (80-100); Monocytes Absolute Auto 400 /uL (0-900); Monocytes Percent Auto 7.8 % (3-14); Neutrophils Absolute Auto 3400 /uL (1500-7000); Neutrophils Percent Auto 65.9 % (50-75); Platelet Count 232 X10^3/uL (150-400); Red Blood Cell Count 4.06 X10^6/uL (4.0-5.2); Red Cell Distribution Width 13.6 % (11.6-14.8); White Blood Cell Count 5.2 X10^3/uL (4.5-11.0)
[2023-07-25 14:07] LABS: Alanine Aminotransferase 29 IU/L (<35); Albumin 4.5 g/dL (3.5-5.0); Albumin Globulin Ratio 1.3 (1.0-2.8); Alkaline Phosphatase 91 U/L (38-126); Aspartate Aminotransferase 36 IU/L (14-36); BUN Creatinine Ratio 27.7 (6-22); Bilirubin Total 0.7 mg/dL (0.2-1.3); Blood Urea Nitrogen 18 mg/dL (7-17); Calcium 9.7 mg/dL (8.4-10.2); Carbon Dioxide 24 mmol/L (22-32); Chloride 102 mmol/L (98-107); Cholesterol 244 mg/dL (140-199); Estimated Glomerular Filt Rate > 60 mL/min (>60); Globulin 3.6 g/dL (1.7-4.1); Glucose 100 mg/dL (80-110); HDL Cholesterol 94 mg/dL (40-60); HEMOLYSIS < 15 (0-50); LDL Cholesterol Calculated 134 mg/dL (<100); Sodium 137 mmol/L (137-145); Total Protein 8.1 g/dL (6.3-8.2); Triglycerides 82 mg/dL (35-150)
== END ==
PROVIDERS: Family Provider Family Medicine; PCP Family Medicine; Referring Provider Family Medicine; Visit Provider Family Medicine
DX: E78.5 Hyperlipidemia, unspecified (principal)
CPT/HCPCS: 36415; 80053; 80061; 85025

== ENCOUNTER 2023-07-26 11:30 | Day surgery (SDC) | payer MEDICARE, OTHER, SELFPAY ==
--- NOTE | 2023-07-26 | PATH_ITS ---
[facility] Accession Number: [id number] No. of containers..01 Tissue . 01 Material submitted: . esophagus, E-G Junction - ESOPHAGUS GE JUNCTION . 01 Diagnosis: Gastroesophageal Junction, Biopsy: Squamous epithelium with no diagnostic abnormality. Scant columnar epithelium negative for intestinal metaplasia. Intraepithelial eosinophils are not increased. Negative for dysplasia and malignancy. MRV 08/06/2023 1420 Local . 01 Electronically signed: . Mari Shanks MD, Pathologist NPI- [id number] . 01 Gross description: . The specimen is received in formalin, labeled with the patient's name, , and esophagus GE junction, and consists of a single christianson, soft tissue fragment measuring 0.2 cm in greatest dimension. Submitted entirely in cassette A1. ([id number]) /FRR 07/27/2023 1558 Local . 01 Pathologist provided ICD-10: Z87.19 . 01 CPT . 513831 Specimen Comment: A courtesy copy of this report has been sent to [phone] Performed at: 01 [facility] [address] [place] [address], [place], [place] [id number] MD Brennon Alamo MD Phone: [phone]
[2023-07-26] MEDS: LACTATED RINGERS 1,000 ML 42 ML IV (11:42)
[2023-07-26 11:48] VITALS: BP 165/100; PULSE 95; RESP 16; TEMP 36.2; O2SAT 97; BMI 24.9
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
--- NOTE | 2023-07-26 13:48 | PM.OP.EGD ---
Operative Date/Time/Diagnoses Date of procedure: 07/26/23 Time of procedure: 13:48 Pre-op diagnosis: Esophageal dysphagia Post-op diagnosis: other (Schatzki ring) Procedure & Clinicians Study performed: Esophagoduodenoscopy Esophageal dilation Same procedure as scheduled: Yes Indications: History of Schatzki ring with recurrent esophageal dysphagia Surgeon: Barney Auguste Procedure Notes Procedure in detail: The history and physical was performed/updated and the patient is ASA class is 2. The procedure was discussed in detail with the patient. Potential risks complications including infection, bleeding, missed diagnosis, perforation, need for surgery, and were explained. Their questions were answered and informed consent was obtained. Patient placed in left lateral decubitus position. Time out was performed. Procedural sedation was administered by Anesthesia. A bite block was placed. the scope was inserted into the mouth and advanced through the esophagus. Scope was unable to passed into the stomach as a result of the Schatzki ring. The balloon dilator was placed through the Schatzki ring and then slowly inflated under direct visualization. Ultimately the the esophagus was dilated to 20 mm and held in place for 1 minute. Hemostatic. The scope was then advanced into the stomach. The pylorus was intubated and the duodenum was examined to the 2nd portion. The scope was then withdrawn into the stomach and was retroflexed. The stomach was decompressed and scope was withdrawn slowly through the esophagus. Biopsy of the GE junction was performed with forceps. FINDINGS -Schatzki ring dilated to 20 mm -hiatal hernia -GE junction at 35 cm from incisors The patient tolerated the procedure well and will be discharged when they meet criteria. Specimen(s): other (GE junction) Impression: Schatzki ring Post-procedure Plan for aftercare: Repeat EGD as needed for esophageal dysphagia Disposition: same day surgery
[2023-07-26 13:51] VITALS: BP 103/71; PULSE 97; RESP 28; TEMP 36.2; O2SAT 91
[2023-07-26 13:56] VITALS: BP 115/78; PULSE 98; RESP 20; O2SAT 94
[2023-07-26 14:01] VITALS: BP 105/77; PULSE 96; RESP 17; O2SAT 95
[2023-07-26 14:07] VITALS: BP 157/99; PULSE 92; RESP 20; O2SAT 94
== END 2023-07-26 14:24 | disposition home or self-care (01) ==
PROVIDERS: Family Provider Family Medicine; PCP Family Medicine; Referring Provider Surgery; Visit Provider Surgery
PROC: 0DJ08ZZ Inspection of Upper Intestinal Tract, Via Natural or Artificial Opening Endoscopic (ICD-10-PCS; CPT 43235; principal; 2023-07-26 12:30)
DX: R13.12 Dysphagia, oropharyngeal phase (principal); K22.2 Esophageal obstruction; K44.9 Diaphragmatic hernia without obstruction or gangrene
CPT/HCPCS: 43239

== ENCOUNTER 2024-06-16 14:12 | Day surgery (SDC) | payer MEDICARE, OTHER, SELFPAY ==
[2024-06-16 14:32] VITALS: BP 139/89; PULSE 77; RESP 16; TEMP 36.6; O2SAT 96
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
--- NOTE | 2024-06-16 15:06 | PM.OP.EGD ---
Operative Date/Time/Diagnoses Date of procedure: 06/16/24 Time of procedure: 15:06 Pre-op diagnosis: Esophageal stricture Post-op diagnosis: same Procedure & Clinicians Study performed: Esophagogastroduodenoscopy with dilation Same procedure as scheduled: Yes Indications: Esophageal dysphagia. History of esophageal stricture Surgeon: Barney Auguste Procedure Notes Procedure in detail: The history and physical was performed/updated and the patient is ASA class is 2. The procedure was discussed in detail with the patient. Potential risks complications including infection, bleeding, missed diagnosis, perforation, need for surgery, and were explained. Their questions were answered and informed consent was obtained. Patient placed in left lateral decubitus position. Time out was performed. Procedural sedation was administered by Anesthesia. A bite block was placed. the scope was inserted into the mouth and advanced through the esophagus and into the stomach. The distal esophagus is strictured but the scope was able to pass through it. The pylorus was intubated and the duodenum was examined to the 2nd portion. The scope was then withdrawn into the stomach and was retroflexed. The stomach was decompressed and scope was withdrawn slowly through the esophagus. The distal esophageal stricture was slowly dilated under direct visualization using the balloon dilator to a maximum of 20 mm. Patient tolerated the procedure well and was transferred to recovery in stable condition. Specimen(s): none sent Impression: Esophageal stricture Post-procedure Plan for aftercare: Continue omeprazole 20 mg daily Follow up: as needed Disposition: same day surgery
[2024-06-16 15:09] VITALS: BP 95/69; PULSE 83; RESP 20; TEMP 36.4; O2SAT 95
[2024-06-16 15:17] VITALS: BP 132/91; PULSE 76; RESP 20; TEMP 36.6; O2SAT 96
[2024-06-16 15:24] VITALS: BP 129/72; PULSE 92; RESP 20; TEMP 36.4; O2SAT 96
--- NOTE | 2024-06-16 15:34 | SUR.PHASEII ---
unable to reach patients spouse. Will continue to try. Patient resting in phase 2.
[2024-06-16 16:11] VITALS: BP 142/94; PULSE 66; RESP 16; TEMP 36.4; O2SAT 99
== END 2024-06-16 16:40 | disposition home or self-care (01) ==
PROVIDERS: Family Provider Family Medicine; PCP Family Medicine; Referring Provider Surgery; Visit Provider Surgery
PROC: 0DJ08ZZ Inspection of Upper Intestinal Tract, Via Natural or Artificial Opening Endoscopic (ICD-10-PCS; CPT 43249; principal; 2024-06-16 15:15)
DX: K22.2 Esophageal obstruction (principal)
CPT/HCPCS: 43249; J2704

== ENCOUNTER → 2024-09-01 08:09 | Outpatient (CLI) | payer MEDICARE, OTHER, SELFPAY ==
[2024-09-01 08:49] LABS: Add Manual Diff / Slide Review NO; Basophils Absolute Auto 0 /uL (0-100); Basophils Percent Auto 0.3 % (0-2); Eosinophils Absolute Auto 100 /uL (0-450); Eosinophils Percent Auto 0.9 % (2-4); Hematocrit 44.8 % (36-46); Hemoglobin 15.4 g/dL (12.0-16.0); Lymphocytes Absolute Auto 1800 /uL (1100-4500); Lymphocytes Percent Auto 26.6 % (25-40); Mean Corpuscular HGB Conc 34.4 % (30-36); Mean Corpuscular Hemoglobin 34.8 PG (26-34); Mean Corpuscular Volume 101.4 fL (80-100); Monocytes Absolute Auto 700 /uL (0-900); Neutrophils Absolute Auto 4300 /uL (1500-7000); Neutrophils Percent Auto 62.2 % (50-75); Platelet Count 294 X10^3/uL (150-400); Red Blood Cell Count 4.42 X10^6/uL (4.0-5.2); Red Cell Distribution Width 13.4 % (11.6-14.8); White Blood Cell Count 6.9 X10^3/uL (4.5-11.0)
[2024-09-01 09:05] LABS: Alanine Aminotransferase 48 IU/L (<35); Albumin 4.8 g/dL (3.5-5.0); Albumin Globulin Ratio 1.6 (1.0-2.8); Alkaline Phosphatase 108 U/L (38-126); Aspartate Aminotransferase 72 IU/L (14-36); BUN Creatinine Ratio 16.2 (6-22); Bilirubin Total 1.3 mg/dL (0.2-1.3); Blood Urea Nitrogen 12 mg/dL (7-17); Calcium 9.9 mg/dL (8.4-10.2); Carbon Dioxide 24 mmol/L (22-32); Chloride 100 mmol/L (98-107); Cholesterol 253 mg/dL (140-199); Estimated Glomerular Filt Rate > 60 mL/min (>60); Glucose 133 mg/dL (80-110); HEMOLYSIS < 15 (0-50); Potassium 3.7 mmol/L (3.4-5.1); Sodium 135 mmol/L (137-145); Total Protein 7.8 g/dL (6.3-8.2); Triglycerides 154 mg/dL (35-150)
[2024-09-01 09:14] LABS: HDL Cholesterol 115 mg/dL (40-60); LDL Cholesterol Calculated 107 mg/dL (<100)
== END ==
PROVIDERS: Family Provider Family Medicine; PCP Family Medicine; Referring Provider Family Medicine; Visit Provider Family Medicine
DX: R03.0 Elevated blood-pressure reading, without diagnosis of hypertension (principal); E78.5 Hyperlipidemia, unspecified
CPT/HCPCS: 36415; 80053; 80061; 85025

== ENCOUNTER → 2024-09-17 09:43 | Outpatient (CLI) | payer MEDICARE, OTHER, SELFPAY ==
[2024-09-17 11:08] LABS: Hemoglobin A1C% w Est Avg Glu 5.3 % (4.0-6.0)
== END ==
PROVIDERS: Family Provider Family Medicine; PCP Family Medicine; Referring Provider Family Medicine; Visit Provider Family Medicine
DX: R73.01 Impaired fasting glucose (principal)
CPT/HCPCS: 36415; 83036

== ENCOUNTER → 2025-07-24 07:48 | Outpatient (CLI) | payer MEDICARE, OTHER, SELFPAY ==
--- NOTE | 2025-07-24 07:49 | DI.MG.S_ITS ---
MM screening mammo BI: 07/24/2025. BI-RADS: 1 CLINICAL: 74-year old female for bilateral screening mammogram. Tyrer-Cuzick lifetime risk of 4.9%. No personal or first-degree family history of breast cancer. PRIOR EXAMS 03/28/2022, 03/06/2022, 02/18/2021, 01/29/2019, MAMMOGRAPHY TECHNIQUE: 2D and 3D (tomosynthesis) digital mammographic views obtained, with additional images as needed for full coverage. Current study was also evaluated with a Computer Aided Detection (CAD) system. DENSITY C. The breasts are heterogeneously dense, which may obscure small masses. MAMMOGRAPHY FINDINGS Bilateral: No suspicious mass, asymmetry, microcalcification, or other abnormality seen. IMPRESSION: * No evidence of malignancy. RECOMMENDATIONS Bilateral * Annual screening mammography. OVERALL ASSESSMENT CATEGORY BI-RADS-1: Negative. The [employer] recommends annual screening mammography beginning at age 40 for women with average risk of breast cancer. ELECTRONICALLY SIGNED: Tato Arias M.D. on 07/25/2025 at 09:01:03 PM PT Interpreting Station ID: [id number]
== END ==
LOC: MAMMO 07:49
PROVIDERS: PCP Family Medicine; Referring Provider Family Medicine; Visit Provider Family Medicine
DX: Z12.31 Encounter for screening mammogram for malignant neoplasm of breast (principal); R92.333 Mammographic heterogeneous density, bilateral breasts
CPT/HCPCS: 77063; 77067